=== PATIENT | female | born 1930 | race Caucasian/White ===

== ENCOUNTER 2016-10-06 13:05 | Emergency (ER) | payer OTHER ==
--- NOTE | ~2016-10-06 | CT4 ---
[facility] A Service of [facility] RADIOLOGY TEXT RESULTS PATIENT: SHAHID CONLEY LOCATION: SED : 32 UNIT #: [id number] AGE: [address]: David Blake MD SEX: F ORDER DR: [id number] [address] [address] [id number] E MR#: [id number] #: [id number] NAME: SHAHID CONLEY : 1930 SEX: F STUDY DATE/TIME: 10/06/2016 13:24 UNIT: SED ROOM: STUDY DESCRIPTION: CT Abd and Pelv Wo Cont Attending Physician: David Blake M.D. Ordering Physician: David Blake M.D. Primary Care Physician: Mike Shah D.O. MEDICAL IMAGING REPORT This report is preliminary unless electronic signature is present. EXAM CT abdomen and pelvis without contrast Date: 10/06/[address] exam was performed with one or more of the following radiation dose reduction techniques: automatic exposure control, adjustment of mA and/or kV according to patient size, and iterative reconstruction. HISTORY Right side abdominal pain and flank pain which began last night around 22:30. Nausea. Hypertension. Cholecystectomy 2015. COMPARISON CT abdomen and pelvis 03/10/2015. PROCEDURE 3 mm noncontrast axial images through the abdomen and pelvis. Enteric contrast was not administered. FINDINGS Abdomen: The appendix is normal. Limited evaluation bowel due to the lack of enteric contrast. There is some high-density material within the distal ileum, which may represent enteric contrast ingested at Another department or facility. However, there is no convincing evidence of active large or small bowel inflammatory change and there is no evidence of high-grade bowel obstruction. There is an umbilical hernia projecting slightly toward the right of midline containing only fat. This hernia sac measures 3.3 x 2.5 x 3 cm and appears new since 03/10/2015. It does not appear appreciably [facility] A Service of [facility] RADIOLOGY TEXT RESULTS PATIENT: SHAHID CONLEY LOCATION: SED : [birth year] UNIT #: [id number] AGE: [address]: David Blake MD SEX: F ORDER DR: incarcerated or inflamed. The liver, spleen, pancreas, adrenals and kidneys have normal noncontrast appearance. No urinary tract stone or hydronephrosis or perinephric inflammation is seen. The gallbladder surgically absent. Small left posterior diaphragmatic hernia containing only fat. Chronic-appearing mild fibrotic changes in the lung bases. No acute appearing basilar airspace disease is seen. Tiny esophageal hiatal hernia. There is fusiform aneurysmal dilation of the infrarenal abdominal aorta measuring approximate 4.1 cm, not appreciably changed from 4 cm on 03/10/2015. Moderate calcific atherosclerosis is seen within the inferior internal abdominal aorta and common iliac arteries. Pelvis: Diverticular changes are present in the sigmoid colon without evidence of acute diverticulitis. Uterus is atrophic. Urinary bladder is decompressed. Rectum appears normal. No pelvic adenopathy or free fluid is seen. Chronic-appearing mild compression deformity of the superior endplate of L1. Advanced loss of disc height at L4-5 with endplate degenerative changes. Degenerative changes at multiple lumbar levels and within the pubic symphysis. No acute osseous abnormalities are identified. IMPRESSION 1. No acute findings in the abdomen or pelvis to explain the patient's right-side abdominal pain. 2. The appendix is normal. 3. There is a small umbilical hernia containing only fat, new finding since 03/10/2015. 4. Approximate stable fusiform infrarenal abdominal aortic aneurysm measuring 4.1 cm, compared to 4.0 cm on 03/10/2015. 5. Cholecystectomy. 6. Degenerative changes lumbar spine. Chronic-appearing mild compression for the superior endplate of L1. 7. Uncomplicated sigmoid diverticulosis. 8. No urinary tract stone or hydronephrosis. Dictated by... Zehra Springer M.D. THIS IS AN ELECTRONICALLY VERIFIED REPORT Zehra Springer M.D. at 10/07/2016 2:13 PM RICHARD/atul TD: 10/06/2016 14:23 JOB #: [id number] [facility]. [facility] A Service of [facility] RADIOLOGY TEXT RESULTS PATIENT: SHAHID CONLEY [place]ATION[place] [facility] [place] [birth year] UNIT #: [id number] AGE: [address]: David Blake MD SEX: F ORDER DR: MEDICAL IMAGING REPORT
[~2016-10-06 13:05] MED LIST: ATENOLOL PO; ATENOLOL-CHLOR1 EACH PO; CHLORTHALIDONE25 MG
[2016-10-06 13:13] LABS: URINE SOURCE CLEAN CATCH
[2016-10-06 13:15] LABS: URINE APPEARANCE CLEAR; URINE BILIRUBIN NEG (NEG); URINE BLOOD 1+ (NEG); URINE COLOR YELLOW; URINE GLUCOSE NEG (NORM); URINE KETONE NEG (NEG); URINE LEUKOCYTE ESTERASE NEG (NEG); URINE NITRATE NEG (NEG); URINE PROTEIN 2+ (NEG); URINE SPECIFIC GRAVITY 1.025 (1.003-1.035)
[2016-10-06 13:17] LABS: MICRO INDICATED? YES
[2016-10-06 13:23] LABS: BASOPHIL# 0.1 X10e3 (0-0.3); BASOPHIL% 0.5 % (0-2.5); EOSINOPHIL# 0.1 X10e3 (0-0.7); EOSINOPHIL% 1.1 % (0.0-7.0); HEMATOCRIT 41.3 % (35.0-45.0); HEMOGLOBIN 13.8 gm/dL (12.0-16.0); LYMPHOCYTE# 1.8 X10e3 (1.0-3.5); LYMPHOCYTE% 18.1 % (17.0-45.0); MEAN CELL VOLUME 92.8 FL (83-96); MEAN CORPUSCULAR HGB CONC 33.4 g/dL (30-36); MEAN PLATELET VOLUME 7.8 FL (6.5-11.5); MONOCYTE# 0.7 X10e3 (0-1.0); MONOCYTE% 7.6 % (3.0-12.0); NEUTROPHIL# 7.1 X10e3 (1.5-7.1); NEUTROPHIL% 72.7 % (40-75); PLATELET COUNT 337 X10e3 (140-420); RED BLOOD COUNT 4.45 X10e (3.90-5.30); RED CELL DISTRIBUTION WIDTH 13.9 % (11.0-15.5); WHITE BLOOD COUNT 9.8 X10e3 (4.0-10.5)
[2016-10-06 13:27] LABS: DIFF IND NO
[2016-10-06 13:33] LABS: CULTURE INDICATED? NO; URINE BACTERIA NEG (NEG); URINE RBC 0-2 /[HPF] (0-2); URINE SQUAMOUS EPITHELIAL CELL OCCAS /[HPF]; URINE WBC NEG /[HPF] (0-5)
[2016-10-06 13:57] LABS: ALBUMIN SERUM 4.1 g/dL (3.5-5.0); BILIRUBIN, DIRECT 0.1 mg/dL (0.0-0.2); BILIRUBIN,INDIRECT 0.6 mg/dL (0.0-0.9); BILIRUBIN,TOTAL 0.7 mg/dL (0.2-2.0); BUN/CREATININE RATIO 11.53; CALCIUM SERUM 9.5 mg/dL (8.4-10.2); CREATININE SERUM 1.3 mg/dL (0.6-1.4); GLOM FILT RATE Estimated 41.4 mL/min (>60); POTASSIUM 2.8 mmol/L (3.5-5.1); PROTEIN TOTAL SERUM 7.6 g/dL (6.0-8.3)
== END 2016-10-06 15:55 | disposition home or self-care (01) ==
LOC: SED 13:05
PROVIDERS: Emergency Medicine
DX: K42.9 Umbilical hernia without obstruction or gangrene (principal); E87.6 Hypokalemia; I10 Essential (primary) hypertension; Z90.49 Acquired absence of other specified parts of digestive tract; Z79.899 Other long term (current) drug therapy
CPT/HCPCS: 36415; 74176; 80048; 80076; 81003; 83690; 85025; 96365; 96375; 99284; J1170; J2270; J2405